=== PATIENT | female | born 1955 | race Caucasian/White ===

== ENCOUNTER 2016-11-26 10:06 | Emergency (ER) | payer MEDICAID, OTHER ==
[~2016-11-26] VITALS: Ht 152.4 cm; Wt 82.0 kg
[~2016-11-26 10:06] MED LIST: HYD25 PO; HYDR-3498 PO; ONDA4TAB35 PO; TRAM50TA2 PO
[2016-11-26 10:12] VITALS: Ht 152.4 cm; Wt 82.0 kg
[2016-11-26] MEDS ORDERED: HYD25 PO (10:26)
[2016-11-26] MEDS ORDERED: NICARDipine HCL 30 MG CAPSULE PO ONE (10:30)
[2016-11-26 10:53] VITALS: BP 161/89; PULSE 79; RESP 18; TEMP 98.2
--- NOTE | 2016-11-26 12:37 | ERD ---
ER Documentation Chief Complaint Date/Time DATE: 11/26/16 TIME: 12:35 Chief Complaint IN ED FOR EVAL OF HIGH B/P. NO C/O KING OR CP HPI Patient is a 61-year-old female with hypertension who presents with high blood pressure. She is complaining of "arthritis pain" in her knees and feet bilaterally. She said that she is supposed be taking blood pressure medicines but she is out of her blood pressure medicines for the past 1 week. She can remember what blood pressure medicine she is on. She does not currently have a primary doctor. Upon review of old medical records this is the patient's third visit to the ER since 2014. ROS All systems reviewed and are negative except as per history of present illness. Medications Home Meds Active Scripts Hydrochlorothiazide* (Hydrochlorothiazide*) 25 Mg Tab, 25 MG PO DAILY, #30 TAB Prov:TATE FAGAN MD 11/26/16 Tramadol HCl (Tramadol HCl) 50 Mg Tablet, 50 MG PO Q6 Y for PAIN, #20 TAB Prov:ILDA DOYLE MD 06/13/16 Hydrochlorothiazide* (Hydrochlorothiazide*) 25 Mg Tab, 25 MG PO DAILY, #30 TAB Prov:ANIL FRANCIS MD 07/07/15 Ondansetron Hcl* (Zofran* ODT) 4 mg -ODT Tab.disper, 4 MG PO Q6 Y for NAUSEA AND /OR VOMITING, #10 TAB Prov:ANIL FRANCIS MD 07/07/15 Hydrocodone Bit-Acetaminophen* (Hopkins*) 5-325 Mg Tab, 1 TAB PO Q6 Y for PAIN, # 10 TAB Prov:ANIL FRANCIS MD 07/07/15 Allergies Allergies: Coded Allergies: No Known Allergy (Unverified , 07/07/15) PMhx/Soc History of Surgery: No Anesthesia Reaction: No Hx Neurological Disorder: No Hx Respiratory Disorders: No Hx Cardiac Disorders: Yes (hypertension) Hx Psychiatric Problems: No Hx Miscellaneous Medical Probl: Yes (arthritis, right arm fx) Hx Alcohol Use: No Hx Substance Use: No Hx Tobacco Use: No Smoking Status: Never smoker FmHx Family History: No diabetes Physical Exam Vitals Vital Signs Date Time Temp Pulse Resp B/P Pulse Ox O2 Delivery O2 Flow Rate FiO2 11/26/16 10:53 98.2 79 18 161/89 100 Room Air 11/26/16 10:28 97.9 83 18 177/84 99 Room Air 11/26/16 10:12 97.9 83 19 237/102 99 Physical Exam Const: No acute distress Head: Atraumatic Eyes: Normal Conjunctiva ENT: Normal External Ears, Nose and Mouth. Neck: Full range of motion..~ No meningismus. Resp: Clear to auscultation bilaterally Cardio: Regular rate and rhythm, no murmurs Abd: Soft, non tender, non distended. Normal bowel sounds Skin: No petechiae or rashes Back: No midline or flank tenderness Ext: No cyanosis, or edema Neur: Awake and alert Psych: Normal Mood and Affect Results 24 hrs Current Medications Medications (Trade) Dose Ordered Sig/Anat Route PRN Reason Start Time Stop Time Status Last Admin Dose Admin Nicardipine HCl (Cardene) 30 mg ONCE ONCE PO 11/26/16 10:30 11/26/16 10:31 DC 11/26/16 10:37 Procedures/MDM Patient is a 61-year-old female who presents with acute hypertension. She has no complaints other than arthritis pain. She has no headache or chest pain. At this point I doubt acute hypertensive emergency. The patient will be given Cardene to bring her blood pressure down. Since she does not know her blood pressure medicines she is supposed to be on I will give her prescription for hydrochlorothiazide but I will also give her a list of the local clinics because I told her most importantly she needs to obtain a primary doctor and see them for blood pressure recheck within the next 24-48 hours. She can return sooner for any worsening symptoms. Departure Diagnosis: Primary Impression: Hypertension Hypertension type: essential hypertension Qualified Code: I10 - Essential hypertension Condition: Fair Patient Instructions: High Blood Pressure (Hypertension) [facility] Usted se king hecho un examen mdico de control que le indica que no est en raymond condicin que requiera tratamiento urgente en el Departamento de Emergencia. Un estudio ms profundo y el tratamiento de greenberg condicin pueden esperar sin ningn riesgo hasta que usted sea atendida/o en el consultorio de greenberg mdico o raymond cl bekah. Es responsabilidad suya arreglar raymond opal para el seguimiento del therese. MANEJO DE CONDICIONES NO URGENTES EN EL FUTURO 1) Si usted tiene un mdico de atencin primaria: Usted debera llamar a greenberg mdico de atencin primaria antes de venir al departamento de emergencia. Despus de las horas de consultorio, greenberg doctor o greenberg asociado/a est disponible por telfono. El mdico o enfermero de luther en el servicio telefnico puede asesorarle por stephanie medio para atender el problema, o therese contrario se puede programar raymond opal. 2) Si usted no tiene un mdico de atencin primaria: Llame al mdico o clnica de referencia que aparece abajo modesta las horas de consultorio para hacer raymond opal para que le vean. CLINICAS: [facility] [phone] [facility] [phone] [facility] [facility] [phone] [facility] [place] [id number] [phone] [facility]. [facility] [phone] [facility]. [phone] Additional Instructions: Llame al doctor MAANA y meena raymond OPAL PARA DENTRO DE 1-2 PETTIT.Dgale a la secretaria que nosotros le instruimos hacer esta opal.Avise o llame si greenberg condicin se empeora antes de la opal. Regresa aqui si peor o no mejor. TATE FAGAN MD November 26, 2016 12:37
== END 2016-11-26 11:02 | disposition home or self-care (01) ==
LOC: E/R 10:06
DX: I10 Essential (primary) hypertension (principal)
CPT/HCPCS: Z7502; Z7610; 99283

== ENCOUNTER 2017-07-10 07:35 | Day surgery (SDC) | END 2017-07-10 14:13 | disposition home or self-care (01) ==

== ENCOUNTER 2017-08-11 16:31 | Emergency (ER) | END 2017-08-11 20:15 | disposition home or self-care (01) ==

== ENCOUNTER 2017-09-16 08:36 | Day surgery (SDC) | END 2017-09-16 15:38 | disposition home or self-care (01) ==